=== PATIENT | female | born 1985 | race Caucasian/White ===

== ENCOUNTER 2025-04-12 14:51 | Emergency (ER) | payer MEDICAID, SELFPAY ==
[2025-04-12 15:09] VITALS: BP 151/99; PULSE 56; RESP 18; TEMP 36.4; O2SAT 96; BMI 38.9
--- NOTE | 2025-04-12 15:26 | ED.GENADULT ---
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 Her symptoms started about 4 hours ago. She has some epigastric pain as well. She denies any sick contacts any recent travel SOB you eyes pain She reports she has a remote history of cholecystectomy, denies any other abdominal surgeries pain She is still passing flatus denies any black or bloody stool. No fevers or chills. No other complaints or concerns at this time Related Data Previous Rx's ?Medication ?Instructions ?Recorded ondansetron 4 mg disintegrating 4 mg PO Q8H PRN nausea and 04/12/25 tablet vomiting #20 tabs Allergies Allergy/AdvReac Type Severity Reaction Status Date / Time No Known Allergies Allergy Verified 04/12/25 15:11 Review of Systems Constitutional: Constitutional: Denies body ache(s), Denies chills, Denies fever(s) and Denies headache(s) Eyes: Eyes: Denies blurry vision ENT: Denies vertigo, Denies dizziness and Denies headache(s) Cardiovascular: Cardiovascular: Denies chest pain Gastrointestinal: Gastrointestinal: Reports abdominal pain, Denies melena, Denies hematochezia, Reports diarrhea, Reports loose stools, Reports nausea and Reports vomiting Musculoskeletal: Musculoskeletal: Denies back pain Integumentary/Breasts: Skin/Breast: Denies rash Neurologic: Denies vertigo, Denies dizziness and Denies headache(s) [facility] Social History Social History Advance Directives: No Advance Directives Information Provided: No Physical Exam ED Vital Signs: Vital Signs - 24 hr 04/12/25 15:09 04/12/25 17:55 04/12/25 18:06 Temperature 97.6 F 98.4 F Pulse Rate 56 78 96 Respiratory Rate 18 16 16 Blood Pressure 151/99 H 112/85 103/66 Pulse Oximetry 96 98 98 Oxygen Delivery Method Room Air Room Air Room Air 04/12/25 19:49 Temperature 98.1 F Pulse Rate 67 Respiratory Rate 19 Blood Pressure 101/86 Pulse Oximetry 96 Oxygen Delivery Method Room Air BMI result Body Mass Index 38.9 Const General: healthy appearing, comfortable, no acute distress, alert and awake Nutritional Appearance: well nourished Orientation/consciousness: patient oriented x3 HENMT Head: Yes normocephalic and Yes atraumatic Eyes Eyelids: Yes eyelids normal Conjunctivae: conjunctivae normal Sclerae: sclerae normal Corneas: corneas normal Pupils: Equal, round and reactive pupils present EOM: EOMs intact bilaterally Neck Neck: Yes full ROM Resp Effort & Inspection: normal respiratory effort, able to speak in complete sentences, no audible wheezes and not labored Auscultation: clear to auscultation bilaterally Cardio Rate: regular rate Rhythm: regular rhythm GI Inspection: No distended Palpation (GI): Soft to palpation, not firm, Tenderness to palpation present (GI) in the epigastrum and in the LUQ, no guarding and not rigid Auscultation: normoactive bowel sounds Skin General skin exam: no rashes or lesions noted and elasticity normal Neuro General: patient oriented x3 Cranial nerves: Yes Equal, round and reactive pupils present and Yes Bilaterally intact EOM present Cognition (Neuro): normal cognition Extrem Other: Moving all extremities well without any obvious deformities Course Course Course Narrative: RME: 39-year-old female presents to ED for epigastric pain with nausea vomiting and diarrhea again today. Patient denies any genitourinary symptoms. Patient denies any fever or chills. Labs ordered Medications Administered Discontinued Medications Generic Name Dose Route Start Last Admin Trade Name Freq PRN Reason Stop Dose Admin Lactated Ringer's 1,000 mls @ 999 mls/hr 04/12/25 17:30 04/12/25 19:48 Lr IV 04/12/25 18:30 Infused .Q1H1M DAYAMI Infusion Ondansetron HCl 4 mg 04/12/25 17:21 04/12/25 17:46 Ondansetron Hcl 4 Mg/2 Ml Vial IVPUSH 04/12/25 17:22 4 mg ONCE ONE Administration Pantoprazole Sodium 40 mg 04/12/25 17:21 04/12/25 17:46 Pantoprazole Sodium 40 Mg/10 Ml Vial IVPUSH 04/12/25 17:22 40 mg ONCE ONE Administration Medical Decision Making Medical Decision Making MDM Narrative: 39-year-old female presents for evaluation of GI symptoms including abdominal pain, nausea vomiting and diarrhea. Her symptoms started just a few hours prior to arrival. She denies any sick contacts. She is already status post cholecystectomy. Vital signs are stable on arrival. She has a slight leukocytosis but you likely reactive to her vomiting. On exam she has mild epigastric tenderness. There are no significant chemistry abnormalities, no evidence of SCHUYLER, electrolyte abnormalities. LFTs are within normal limits. The patient is not . We will treat her symptoms that has likely related to a viral illness. I have a low suspicion for surgical abdomen or obstruction. Differential Diagnosis Differential Diagnoses: The differential diagnosis associated with the presentation includes Gastroenteritis Cholelithiasis Constipation GERD viral illness Lab Data MDM Lab Attestation statement: I reviewed the patient's lab results. as above 04/12/25 15:45 04/12/25 15:45 Labs: Lab Results 04/12/25 Range/Units 15:45 WBC 13.3 H (4.8-10.8) X10*3/uL RBC 4.75 (4.20-5.50) X10*6/uL Hgb 13.2 (12.0-16.0) g/dl Hct 41.5 (37.0-47.0) % MCV 87.4 (80.0-98.0) fL MCH 27.8 (27.0-33.0) pg MCHC 31.8 (31.0-35.0) g/dl RDW 12.7 (11.0-16.0) % Plt Count 334 (160-400) X10*3/uL MPV 8.0 L (9.4-12.3) fL Immature Gran % (Auto) 0.3 (0.0-0.4) % Neut % (Auto) 88.5 H (45-73) % Lymph % (Auto) 6.6 L (20-40) % Green % (Auto) 3.9 (2-11) % Eos % (Auto) 0.5 (0-4) % Baso % (Auto) 0.2 (0-2) % Lymph # (Auto) 0.9 L (1.2-4.9) X10*3/uL Green # (Auto) 0.5 (0.1-1.2) X10*3/uL Eos # (Auto) 0.1 (0.0-0.4) X10*3/uL Baso # (Auto) 0.0 (0.0-0.2) X10*3/uL Abs Immat Gran (auto) 0.04 H (0.00-0.03) X10*3/uL Absolute Neuts (auto) 11.7 H (2.0-8.3) x10*3/uL Absolute Nucleated RBC 0.000 (0.0-0.012) X10*3/uL Nucleated RBC % (auto) 0.0 (0.0-0.2) /100WBC Sodium 137 (135-145) mmol/L Potassium 4.8 (3.3-5.1) mmol/L Chloride 107 (96-108) mmol/L Carbon Dioxide 22 (22-29) mmol/L Anion Gap 13 (12-20) BUN 13 (9-16) mg/dL Creatinine 0.78 (0.5-1.4) mg/dL Estim Creat Clear Calc 115.3 Estimated GFR > 60 Random Glucose 108 (60-115) mg/dL Calcium 9.3 (8.4-10.2) mg/dL Total Bilirubin 1.0 (0.0-1.0) mg/dL AST 31 (5-31) U/L ALT 16 (0-31) U/L Alkaline Phosphatase 69 (39-117) U/L Total Protein 8.3 H (6.5-8.0) g/dL Albumin 4.2 (3.5-5.0) g/dL Lipase 23 (8-78) U/L Beta HCG, Quant < 2 mIU/mL Influenza Type A (PCR) NEGATIVE (Negative) Influenza Type B (PCR) NEGATIVE (Negative) RSV RNA Qual (PCR) NEGATIVE (Negative) SARS-CoV-2 RNA (RT-PCR) NEGATIVE (Negative) S. pyogenes GrpA ARIA Negative (Negative) Tests considered The following testing was considered but not selected: consider CT scan of the abdomen pelvis Discharge Plan Discharge Clinical Impression: Acute nausea with nonbilious vomiting Patient Disposition: Home, Self-Care Instructions: Acute Nausea and Vomiting (ED) Additional Instructions: your workup in the ER today was reassuring pain Your symptoms are consistent with a viral illness. Use Zofran as needed for nausea and vomiting. You may use Imodium for diarrhea. Drink lots of fluids, small sips at a time Prescriptions: New ondansetron 4 mg tablet,disintegrating 4 mg PO Q8H PRN (Reason: nausea and vomiting) Qty: 20 0RF Interventions: ED Discharge Assessment Last Done: 04/12/25 19:49 Discharge Date/Time: 04/12/25 19:50 Print Language: Armenian
[2025-04-12 15:51] LABS: Hematocrit 41.5 % (37.0-47.0); Hemoglobin 13.2 g/dl (12.0-16.0); Imm Gran Abs Auto 0.04 X10*3/uL (0.00-0.03); Imm Gran Pct Auto 0.3 % (0.0-0.4); Lymphocytes Absolute Auto 0.9 X10*3/uL (1.2-4.9); MANUAL DIFF FLAG NO; Mean Corpuscular HGB Conc 31.8 g/dl (31.0-35.0); Mean Corpuscular Hemoglobin 27.8 pg (27.0-33.0); Mean Corpuscular Volume 87.4 fL (80.0-98.0); NRBC Abs Auto 0.000 X10*3/uL (0.0-0.012); NRBC Pct Auto 0.0 /100WBC (0.0-0.2); Platelet Count 334 X10*3/uL (160-400); Red Blood Count 4.75 X10*6/uL (4.20-5.50); White Blood Count 13.3 X10*3/uL (4.8-10.8)
[2025-04-12 16:19] LABS: Alanine Aminotransferase 16 U/L (0-31); Albumin Level 4.2 g/dL (3.5-5.0); Alkaline Phosphatase 69 U/L (39-117); Anion Gap 13 (12-20); Aspartate Amino Transferase 31 U/L (5-31); Blood Urea Nitrogen 13 mg/dL (9-16); Calcium 9.3 mg/dL (8.4-10.2); Carbon Dioxide 22 mmol/L (22-29); Chloride 107 mmol/L (96-108); Creatinine Clr Calc Pharmacy 115.3; Estimated Glomerular Filt Rate > 60; Lipase 23 U/L (8-78); Potassium 4.8 mmol/L (3.3-5.1); Sodium 137 mmol/L (135-145); Total Protein 8.3 g/dL (6.5-8.0)
[2025-04-12 16:29] LABS: Strep A Nucleic Acid Negative (Negative)
[2025-04-12 16:34] LABS: Resp Syncy Virus RNA Qual PCR NEGATIVE (Negative); SARS COV2 PCR INHOUSE NEGATIVE (Negative)
--- OUTSIDE RECORDS SUMMARY | 2025-04-12 17:21 | XMS_ITS | Clinical Summary ---
Author Organization [facility] Address [address] [place] [id number] Phone Care Team Providers Care Director Of Reimbursement Name Role Phone Sebastien Paniagua Primary Care Prov ider Social History Tobacco Use Types Packs/Day Years Used Date Smoking Tobacco: Never Assessed Comments Unknown Sex and Gender Information Value Date Recorded Sex Assigned at Not on file Legal Sex Female 11:47 AM EDT Gender Identity Not on file Sexual Orientation Not on file Plan of Treatment Not on file Medical Devices Not on file [place] [address] [address] [place] [address] [employer] Care Teams Director Of Reimbursement Relationship Specialty Start Date End Date Sebastien Paniagua FNP [address] [place] [address] PCP - General Nurse Practitioner 11/05/23 Additional Source Comments The information contained in this document represents components of the legal health record. It is not the complete legal health record.[facility]
--- OUTSIDE RECORDS SUMMARY | 2025-04-12 17:21 | XMS_ITS | Clinical Summary ---
Author Organization [employer] Address [address] [place] [address] [address] [place] [address] Care Team Providers Care Inward Toll Operator Name Role Phone Unavailable Primary Care Provider Unavailabl e Social History Tobacco Use Types Packs/Day Years Used Date Smoking Tobacco: Never Assessed Comments Unknown Sex and Gender Information Value Date Recorded Sex Assigned at Not on file Legal Sex Female 9:33 PM EDT Gender Identity Not on file Sexual Orientation Not on file Plan of Treatment Health Maintenance Due Date Last Done Comments Depression Screening 1987 Lipid Panel 1987 SDOH Screening 1987 Disability Screening 1987 Alcohol/Substance Use Screening 1999 Tobacco Screening 1999 Family Planning (PISQ) 08/10/2002 HPV Vaccines (1 - 3-dose series) 08/10/2002 Hepatitis C Screening 08/10/2005 Hepatitis B Vaccines (1 of 3 - 19+ 3-dose series) 08/10/2006 Pap Smear 08/10/2008 Cervical Cancer Screening 08/10/2017 HPV/Cotest 08/10/2017 COVID-19 Vaccine (3 - 2024-2 6 season) 2024 02/23/2021, 02/02/2021 Influenza Vaccine (#1) 2024 2, 06/10/2019, 03/20/2015 DTaP/Tdap/Td Vaccines (2 - T d or Tdap) 04/27/2028 04/27/2018 Zoster Vaccines (1 of 2) 08/10/2037 RSV Patients and Patients Aged 60 years or older (1 - 1-dose 75+ series) 08/10/2062 HIV Screening Completed 10/29/2023 HIB Vaccines Aged Out No longer eligi ble based on patient's age to complete this topic Hepatitis A Vaccines Aged Out No long er eligible based on patient's age to complete this topic IPV Vaccines Aged Out No longer eligi ble based on patient's age to complete this topic Meningococcal B Vaccine Aged Out No l onger eligible based on patient's age to complete this topic Meningococcal Vaccine Aged Out No mirta lo eligible based on patient's age to complete this topic Pneumococcal Vaccine: Pediatrics (0 to 5 Years) and At-Risk Patients (6 to 49) Years Aged Out No longer eligible b ased on patient's age to complete this topic RSV under 20 months Aged Out No longe r eligible based on patient's age to complete this topic Rotavirus Vaccines Aged Out No longer eligible based on patient's age to complete this topic
--- OUTSIDE RECORDS SUMMARY | 2025-04-12 17:21 | XMS_ITS | Clinical Summary ---
Author Organization [facility] Address [address] [place] [address] Phone Care Team Providers Care Edge Burnisher Name Role Phone Sebastien Paniagua NP Primary Care Provider [phone] Allergies No known active allergies Medications acetaminophen (TYLENOL) 500 mg tablet Take 2 tablets (1,000 mg total) by mouth every 6 (six) hours if needed for mild pain for up to 10 days. 30 tablet 03/17/2025 03/27/20 25 naproxen (NAPROSYN) 500 mg tablet Take 1 tablet (500 mg total) by mouth 2 (two) times a day with meals for 15 days. 30 tablet 03/17/2025 04/01/20 25 Encounters Date Type Department Care Team Description 03/17/2025 2:27 AM EST - 03/17/2025 2:39 AM EST Emergency [facility] Emergency [address] [place] [address] Dysfunctional uterine bleeding (Primary Dx); Leukocytosis, unspecified type Discharge Disposition: Home or Self Care from Last 3 Months Social History Tobacco Use Types Packs/Day Years Used Date Smoking Tobacco: Never Smokeless Tobacco: Never Tobacco Cessation:Counseling Given: Not Answered Alcohol Use Standard Drinks/Week Comments Never 0 (1 standard drink = 0.6 oz pur e alcohol) Comments Unknown Sex and Gender Information Value Date Recorded Sex Assigned at Not on file Legal Sex Female 9:59 AM EST Gender Identity Not on file Sexual Orientation Not on file Last Filed Vital Signs Vital Sign Reading Time Taken Comments Blood Pressure 127/92 03/17/2025 2:11 AM EST Pulse 74 03/17/2025 2:11 AM EST Temperature 36.4 C (97.5 F) 03/17/2025 2:11 AM EST Respiratory Rate 16 03/17/2025 2:11 AM EST Oxygen Saturation 100% 03/17/2025 2:11 AM EST Inhaled Oxygen Concentration - - Weight 93.4 kg (206 lb) 03/16/2025 10:45 PM EST Height 167.6 cm (5' 6 ) 03/16/2025 10:45 PM EST Body Mass Index 33.25 03/16/2025 10:45 PM EST Plan of Treatment Health Maintenance Due Date Last Done Comments Drug Screen 1987 Naloxone Order 1987 Opioid Substance Agreement 1987 Pain Assessment 1987 Hepatitis B Vaccines (1 of 3 - 19+ 3-dose series) 08/10/2006 Cervical Cancer Screening: Pap Smear 08/10/2008 HPV Vaccines (1 - 3-dose SCDM series) 08/10/2014 Depression Screening 04/21/2024 HIV Screening 07/23/2024 Hepatitis C Screening 07/23/2024 Social Influencers of Health Screening 07/23/2024 COVID-19 Vaccine ( season) 2024 02/23/2021, 02/02/2021 Influenza Vaccine (#1) 2024 , 06/10/2019, 03/20/2015 Cholesterol Screening (Lipid Panel) 01/21/2027 01/21/2022, 01/21/2022, 06/10/2019, Additional history exists DTaP,Tdap,and Td Vaccines (2 - Td or Tdap) 04/27/2028 04/27/2018 RSV Immunization Adult Patients (1 - 1-dose 75+ series) 08/10/2062 HIB Vaccines Aged Out No longer eligi ble based on patient's age to complete this topic Hepatitis A Vaccines Aged Out No long er eligible based on patient's age to complete this topic IPV Vaccines Aged Out No longer eligi ble based on patient's age to complete this topic MMR Vaccines Aged Out No longer eligi ble based on patient's age to complete this topic Meningococcal ACWY Vaccine Aged Out N o longer eligible based on patient's age to complete this topic Meningococcal B Vaccine Aged Out No l onger eligible based on patient's age to complete this topic Pneumococcal Vaccine: Pediatrics (0 to 5 Years) and At-Risk Patients (6 to 49 Years) Aged Out No longer eligible based on patient's age to complete this topic RSV Immunization Patients Under 20 months Aged Out No longer eligible based on patient's age to complete this topic Varicella Vaccines Aged Out No longer eligible based on patient's age to complete this topic Procedures Procedure Name Priority Date/Time Associated Diagnosis Comments ADDISON URINE CULTURE TUBE STAT 03/17/2025 1:54 AM EST URINALYSIS WITH REFLEX MICROSCOPIC AND CULTURE STAT 03/17/2025 1:53 AM EST URINALYSIS WITH REFLEX MICROSCOPIC AND CULTURE STAT 03/17/2025 1:53 AM EST POC , URINE DIAGNOSTIC STAT 03/17/2025 1:31 AM EST RECHECK ABORH Routine 03/16/2025 10:53 PM EST CBC WITH AUTO DIFFERENTIAL STAT 03/16/2025 10:53 PM EST TYPE AND SCREEN STAT 03/16/2025 10:53 PM EST COMPREHENSIVE METABOLIC PANEL STAT 03/16/2025 10:53 PM EST CBC AND DIFFERENTIAL STAT 03/16/2025 10:53 PM EST from Last 3 Months Results * Addison urine culture tube (03/17/2025 1:54 AM EST) Extra Tube Hold for add-ons. 03/17/2025 3:02 AM EST [facility] Comment:Auto resulted. Urine Urine specimen obtained by clean catch procedure / Unknown Non-blood Collection / Unknown 03/17/2025 1:54 AM EST 03/17/2025 1:54 AM EST [facility] URINE ORDERABLES Calderon al Result [facility] [address] [place] [address], * (ABNORMAL) Urinalysis with reflex microscopic and culture (03/17/2025 1:53 AM EST) Specific [place] Urine 1.014 1.003 - 1.030 LAB URINALYSIS - AUTOMATED METHOD 03/17/2025 2:14 AM [facility] pH, Urine 5.5 5.0 - 8.0 pH LAB URINALYSIS - AUTOMATED METHOD 03/17/2025 2:14 AM [facility] Leukocytes, Urine Negative Negative LAB URINALYSIS - AUTOMATED METHOD 03/17/2025 2:14 AM [facility] Nitrite, Urine Negative Negative LAB URINALYSIS - AUTOMATED METHOD 03/17/2025 2:14 AM [facility] Protein, Urine Negative <=Trace mg/dL LAB URINALYSIS - AUTOMATED METHOD 03/17/2025 2:14 AM [facility] Glucose, Urine Negative Negative mg/dL LAB URINALYSIS - AUTOMATED METHOD 03/17/2025 2:14 AM [facility] Ketones, Urine Negative Negative mg/dL LAB URINALYSIS - AUTOMATED METHOD 03/17/2025 2:14 AM [facility] Urobilinogen , Urine 0.2 0.2 - 1.0 mg/dL LAB URINALYSIS - AUTOMATED METHOD 03/17/2025 2:14 AM [facility] Bilirubin, Urine Negative Negative LAB URINALYSIS - AUTOMATED METHOD 03/17/2025 2:14 AM [facility] Blood, Urine Moderate(A) Negative LAB URINALYSIS - AUTOMATED METHOD 03/17/2025 2:14 AM [facility] RBC, Urine 10(H) 0 - 4 /HPF 03/17/2025 2:14 AM EST [facility] WBC, Urine 4 0 - 4 /HPF 03/17/2025 2:14 AM EST [facility] Squamous Epithelial, Urine 10 0 - 60 /LPF 03/17/2025 2:14 AM [facility] Bacteria, Urine Negative Negative /HPF 03/17/2025 2:14 AM [facility] Hyaline Casts, Urine 3 0 - 3 /LPF 03/17/2025 2:14 AM [facility] Urine Urine specimen obtained by clean catch procedure / Unknown Non-blood Collection / Unknown 03/17/2025 1:53 AM EST 03/17/2025 1:53 AM EST us [facility] URINE ORDERABLES Fin al Result Performing Organization Address City/State/[facility] Co de Phone Number [facility] [address] [place] [address], * POC , urine manually resulted (03/17/2025 1:31 AM EST) HCG, Ur POC Negative Negative Urine Urine specimen obtained by clean catch procedure / Unknown 03/17/2025 1:31 AM EST us [facility] POINT OF CARE TEST ENTER /EDIT ORDERABLES Final Result * Recheck blood typing (03/16/2025 10:53 PM EST) ABO Group B 03/17/2025 12:12 AM [facility] Rh Type Positive 03/17/2025 12:12 AM [facility] Blood Venous blood specimen / Unknown Venipuncture / Unknown 03/16/2025 10:53 PM EST 03/16/2025 11:01 PM EST us [facility] BLOOD BANK TEST MAHIN WOODS Final Result [facility] [address] [place] [address], * (ABNORMAL) CBC auto differential (03/16/2025 10:53 PM EST) WBC 13.6(H) 4.8 - 10.8 K/mcL LAB HEMETOLOGY METHOD 03/16/2025 11:06 PM [facility] RBC 4.20 3.80 - 4.80 M/mcL LAB HEMETOLOGY METHOD 03/16/2025 11:06 PM [facility] Hemoglobin 11.7 11.5 - 16.0 g/dL LAB HEMETOLOGY METHOD 03/16/2025 11:06 PM [facility] Hematocrit 36.3 35.0 - 47.0 % LAB HEMETOLOGY METHOD 03/16/2025 11:06 PM EST [facility] MCV 86.6 79.0 - 98.0 FL LAB HEMETOLOGY METHOD 03/16/2025 11:06 PM EST [facility] MCH 27.9 27.0 - 32.0 pcg LAB HEMETOLOGY METHOD 03/16/2025 11:06 PM [facility] MCHC 32.2 32.0 - 37.0 g/dL LAB HEMETOLOGY METHOD 03/16/2025 11:06 PM [facility] RDW 12.3 11.0 - 15.0 % LAB HEMETOLOGY METHOD 03/16/2025 11:06 PM [facility] Platelets 350 130 - 400 K/mcL LAB HEMETOLOGY METHOD 03/16/2025 11:06 PM [facility] MPV 8.0 7.0 - 11.0 FL LAB HEMETOLOGY METHOD 03/16/2025 11:06 PM [facility] NRBC 0.0 <1.0 % LAB HEMETOLOGY METHOD 03/16/2025 11:06 PM [facility] NRBC Absolute 0.00 <0.10 K/mcL LAB HEMETOLOGY METHOD 03/16/2025 11:06 PM [facility] Neutrophils Relative 68.6 % LAB HEMETOLOGY METHOD 03/16/2025 11:06 PM [facility] Lymphocytes Relative 24.5 % LAB HEMETOLOGY METHOD 03/16/2025 11:06 PM [facility] Monocytes Relative 5.1 % LAB HEMETOLOGY METHOD 03/16/2025 11:06 PM [facility] Eosinophils Relative 1.0 % LAB HEMETOLOGY METHOD 03/16/2025 11:06 PM [facility] Basophils Relative 0.4 % LAB HEMETOLOGY METHOD 03/16/2025 11:06 PM [facility] Immature Granulocytes Relative 0.4 % LAB HEMETOLOGY METHOD 03/16/2025 11:06 PM [facility] Neutrophils Absolute 9.33(H) 1.50 - 7.00 K/mcL LAB HEMETOLOGY METHOD 03/16/2025 11:06 PM [facility] Lymphocytes Absolute 3.33 1.00 - 5.00 K/mcL LAB HEMETOLOGY METHOD 03/16/2025 11:06 PM [facility] Monocytes Absolute 0.70 0.20 - 1.00 K/mcL LAB HEMETOLOGY METHOD 03/16/2025 11:06 PM [facility] Eosinophils Absolute 0.13 0.00 - 0.50 K/mcL LAB HEMETOLOGY METHOD 03/16/2025 11:06 PM [facility] Basophils Absolute 0.06 0.00 - 0.20 K/mcL LAB HEMETOLOGY METHOD 03/16/2025 11:06 PM [facility] Immature Granulocytes Absolute 0.05(H) 0.00 - 0.03 K/mcL LAB HEMETOLOGY METHOD 03/16/2025 11:06 PM EST [facility] Blood Venous blood specimen / Unknown Venipuncture / Unknown 03/16/2025 10:53 PM EST 03/16/2025 11:01 PM EST [facility] BLOOD ORDERABLES Fin al Result Performing Organization Address [facility]/ZIP Co de Phone Number [facility] [address] [place] [address], [place] [phone] * Type and screen (03/16/2025 10:53 PM EST) Pathologist [facility] ABO Group B 03/17/2025 12:09 AM [facility] Rh Type Positive 03/17/2025 12:09 AM [facility] Antibody Screen Negative 03/17/2025 12:09 AM [facility] Blood Venous blood specimen / Unknown Venipuncture / Unknown 03/16/2025 10:53 PM EST 03/16/2025 11:01 PM EST [facility] BLOOD BANK TEST ORDE RABLES Final Result Performing Organization Address [facility]/ZIP Co de Phone Number [facility] [address] [place] [address], [place] [phone] * (ABNORMAL) Comprehensive metabolic panel (03/16/2025 10:53 PM EST) Sodium 134 133 - 145 mmol/L 03/16/2025 11:25 PM [facility] Potassium 4.1 3.5 - 5.5 mmol/L 03/16/2025 11:25 PM [facility] Chloride 99 96 - 110 mmol/L 03/16/2025 11:25 PM [facility] CO2 27 21 - 32 mmol/L 03/16/2025 11:25 PM [facility] Anion Gap 8 3 - 11 03/16/2025 11:25 PM [facility] Glucose 111(H) 70 - 100 mg/dL 03/16/2025 11:25 PM [facility] BUN 9 5 - 25 mg/dL 03/16/2025 11:25 PM [facility] Creatinine 0.77 0.50 - 1.10 mg/dL 03/16/2025 11:25 PM [facility] eGFR 102 >=60 mL/min/1. 73m2 03/16/2025 11:25 PM [facility] Comment:Calculation based on the Chronic Kidney Disease Epidemiology Collaboration (CKD-EPI) equation refit without adjustment for race. BUN/Creatinine Ratio 11.7 03/16/2025 11:25 PM [facility] Calcium 8.0(L) 8.5 - 10.5 mg/dL 03/16/2025 11:25 PM [facility] AST (SGOT) 17 10 - 42 unit/L 03/16/2025 11:25 PM [facility] ALT (SGPT) 12 10 - 60 unit/L 03/16/2025 11:25 PM [facility] Alkaline Phosphatase 73 42 - 121 unit/L 03/16/2025 11:25 PM [facility] Total Protein 7.3 6.0 - 8.0 g/dL 03/16/2025 11:25 PM [facility] Albumin 3.6 3.2 - 5.0 g/dL 03/16/2025 11:25 PM [facility] Total Bilirubin 0.4 0.0 - 1.4 mg/dL 03/16/2025 11:25 PM [facility] Blood Venous blood specimen / Unknown Venipuncture / Unknown 03/16/2025 10:53 PM EST 03/16/2025 11:01 PM EST us [facility] BLOOD ORDERABLES Fin al Result [facility] [address] [place] [address], from Last 3 Months Additional Health Concerns Infection Onset Date Last Indicated Parainfluenza Virus 12/11/2024 12/11/2024 Insurance MEDICAID - [place] Care Teams Edge Burnisher Relationship Specialty Start Date End Date Sebastien Paniagua NP [address] [place] [address] PCP - General Nurse Practitioner 12/11/24
[2025-04-12] MEDS: Lactated Ringers 1,000 ML 999 ML IV (17:46)
[2025-04-12 17:55] VITALS: BP 112/85; PULSE 78; RESP 16; TEMP 36.9; O2SAT 98
[2025-04-12 18:06] VITALS: BP 103/66; PULSE 96; RESP 16; O2SAT 98
[2025-04-12 19:49] VITALS: BP 101/86; PULSE 67; RESP 19; TEMP 36.7; O2SAT 96
== END 2025-04-12 19:50 | disposition home or self-care (01) ==
PROVIDERS: Physician Assistant; Emergency Provider Emergency Medicine; PCP Nurse Practitioner Family
DX: R11.2 Nausea with vomiting, unspecified (principal); Z03.818 Encounter for observation for suspected exposure to other biological agents ruled out; R19.7 Diarrhea, unspecified; R10.13 Epigastric pain
CPT/HCPCS: 80053; 83690; 84702; 85025; 87637; 87651; 96361; 96374; 96375; 99284; J2405; J2470; J7120